=== PATIENT | female | born 1985 | race Caucasian/White ===

== ENCOUNTER 2018-09-02 21:55 | Emergency (ER) | payer OTHER ==
[~2018-09-02] VITALS: Ht 170.2 cm; Wt 100.0 kg
[~2018-09-02 21:55] MED LIST: AMOXICILLIN/CL875 MG PO; AMOXICILLIN500 M2 PO; AMOXICILLIN500 MG OR; AMOXICILLIN875 MG PO; ANAPROX275 MG PO; AUGMENTIN875TAB OR; AUGMENTIN875TAB PO; BACTRIM DS1 TAB PO; CIPRO XR500 MG PO; CIPRO500 MG OR; CIPROFLOXACN500 MG PO; CLARITIN10 M2 PO; CLARITIN10 MG PO; CLINDAMYCIN150 MG PO; CLOBETASOL0.053 EX; CRANBERRY PO; CYCLOBENZAPR10 MG PO; DEP0PROVERA; ESTRADIOL1 MG PO; FLAGYL500 MG PO; FLEXERIL PO; FLEXERIL5 M1 PO; FLONASE NASAL50 MCG; IMPLANON68 MG OTHER; KEFLEX500 MG PO; KETOROLAC60 MG/2 ML IJ; LORTAB 1010 MG PO; LORTAB5 PO; MEDDOSEPAK PO; METROGEL VAG0.75 % VA; MIDOL200 MG PO; MONTELUKAST SOD10 MG PO; NAPROSYN375 MG PO; NAPROSYN500 MG PO; NAPROXEN500 MG PO; POTASSIUM99 MG PO; PREDNISONE10 MG PO; PYRIDIUM200 MG OR; ROBITUSSIN200 MG/10 PO; TAM75CAP PO; TESSALON PER100 MG PO; TRAMADOL HCL50 MG PO; TUBERSOL5 MG/0.1 M ID; ULTRAM50 M1 PO; ULTRAM50 MG PO; ZOFRAN ODT4 MG PO; ZOFRAN ODT8 MG PO; ZOFRAN4 MG/TAB PO
[2018-09-02 23:18] VITALS: BP 100/54
== END 2018-09-02 23:25 | disposition home or self-care (01) ==
LOC: ED 21:55
DX: S90.111A Contusion of right great toe without damage to nail, initial encounter (principal); E11.9 Type 2 diabetes mellitus without complications; F17.210 Nicotine dependence, cigarettes, uncomplicated; W20.8XXA Other cause of strike by thrown, projected or falling object, initial encounter; Y92.009 Unspecified place in unspecified non-institutional (private) residence as the place of occurrence of the external cause

== ENCOUNTER 2018-09-27 19:44 | Emergency (ER) | payer OTHER ==
[~2018-09-27] VITALS: Ht 170.2 cm; Wt 97.0 kg
[2018-09-27] MEDS ORDERED: IBUPROFEN600 MG PO (21:51)
[2018-09-27 21:52] VITALS: BP 135/79
== END 2018-09-27 21:59 | disposition home or self-care (01) | DRG 563 ==
LOC: ED 19:44
DX: S46.912A Strain of unspecified muscle, fascia and tendon at shoulder and upper arm level, left arm, initial encounter (principal); E11.9 Type 2 diabetes mellitus without complications; F17.210 Nicotine dependence, cigarettes, uncomplicated; V49.40XA Driver injured in collision with unspecified motor vehicles in traffic accident, initial encounter

== ENCOUNTER 2018-10-15 20:48 | Emergency (ER) | payer OTHER ==
[~2018-10-15] VITALS: Ht 170.2 cm; Wt 95.6 kg
[~2018-10-15 20:48] MED LIST changes: +IBUPROFEN600 MG PO
[2018-10-15] MEDS ORDERED: AMOXICILLIN500 MG PO (21:09)
[2018-10-15] MEDS ORDERED: MOTRIN800 MG PO (21:09)
[2018-10-15 21:19] VITALS: BP 107/67
== END 2018-10-15 21:19 | disposition home or self-care (01) ==
LOC: ED 20:48
DX: K04.7 Periapical abscess without sinus (principal); K08.89 Other specified disorders of teeth and supporting structures; H92.02 Otalgia, left ear

== ENCOUNTER 2018-10-26 11:22 | Emergency (ER) | payer OTHER ==
[~2018-10-26] VITALS: Ht 170.2 cm; Wt 95.0 kg
[~2018-10-26 11:22] MED LIST changes: +AMOXICILLIN500 MG PO; +MOTRIN800 MG PO
[2018-10-26 12:55] VITALS: BP 133/79
== END 2018-10-26 13:00 | disposition home or self-care (01) | DRG 552 ==
LOC: ED 11:22
DX: M54.2 Cervicalgia (principal); M25.512 Pain in left shoulder; V43.52XA Car driver injured in collision with other type car in traffic accident, initial encounter; Y92.410 Unspecified street and highway as the place of occurrence of the external cause

== ENCOUNTER 2018-12-26 15:51 | Emergency (ER) | payer OTHER ==
[~2018-12-26] VITALS: Ht 170.2 cm; Wt 95.0 kg
[2018-12-26 16:41] LABS: URINE BILIRUBIN - DIPSTICK NEGATIVE (NEGATIVE); URINE BLOOD DIPSTICK NEGATIVE (NEGATIVE); URINE COLOR YELLOW; URINE GLUCOSE - DIPSTICK NEGATIVE (NEGATIVE); URINE KETONE NEGATIVE (NEGATIVE); URINE LEUK ESTERASE NEGATIVE (Negative); URINE NITRITE - DIPSTICK NEGATIVE (Negative); URINE PH 5.5 (4.5-8.0); URINE PROTEIN - DIPSTICK NEGATIVE (NEG-TRACE); URINE UROBILINOGEN - DIPSTICK 0.2 E.U./dL (0.2)
[2018-12-26 16:53] LABS: URINE CLARITY CLEAR
[2018-12-26 16:54] LABS: BARBITURATES NEGATIVE (NEGATIVE); COCAINE POSITIVE (NEGATIVE); METHADONE NEGATIVE (NEGATIVE); OXCYCODONE NEGATIVE (NEGATIVE); TRICYLIC ANTIDEPRESSANTS NEGATIVE (NEGATIVE)
[2018-12-26 16:56] LABS: TETRAHYDROCANNABIONOL NEGATIVE (NEGATIVE)
[2018-12-26 18:20] VITALS: BP 119/74
== END 2018-12-26 18:20 | disposition home or self-care (01) | DRG 313 ==
LOC: ED 15:51
DX: R07.89 Other chest pain (principal); E11.9 Type 2 diabetes mellitus without complications; F17.210 Nicotine dependence, cigarettes, uncomplicated; V43.53XA Car driver injured in collision with pick-up truck in traffic accident, initial encounter; Y99.0 Civilian activity done for income or pay